=== PATIENT | male | born 2000 | race Asian ===

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

== ENCOUNTER 2018-08-03 13:32 | Inpatient (IN) | payer MEDICAID ==
[~2018-08-03] VITALS: Ht 165.1 cm; Wt 90.9 kg
[~2018-08-03 13:32] MED LIST: RISP1TAB89 PO; SERT50TA12 PO
[2018-08-03] MEDS ORDERED: LURA40 PO (16:41)
[2018-08-03] MEDS ORDERED: HALOPERIDOL 5 MG TABLET PO PRN (16:45)
[2018-08-03] MEDS ORDERED: LORazepam 2 MG TABLET PO PRN (16:45)
[2018-08-03 17:05] VITALS: BP 137/83
[2018-08-03] MEDS ORDERED: ONDANSETRON HCL 4 MG TABLET PO PRN (17:15)
[2018-08-03] MEDS ORDERED: GuaiFENesin/D-METHORPHAN [SUGAR-FREE] 200-20MG/10 ML SYRUP UDCUP PO PRN (17:15)
[2018-08-03] MEDS ORDERED: PETROLATUM,WHITE 71 GM JELLY TP PRN (17:15)
[2018-08-03] MEDS ORDERED: ACETAMINOPHEN 325 MG TABLET PO PRN (17:15)
[2018-08-03] MEDS ORDERED: IBUPROFEN 400 MG TABLET PO PRN (17:15)
[2018-08-03] MEDS ORDERED: DOCUSATE SODIUM 100 MG CAPSULE PO PRN (17:15)
[2018-08-03] MEDS ORDERED: MAG HYDROX/AL HYDROX/SIMETH ES 30 ML SUSPENSION UDCUP PO PRN (17:15)
[2018-08-03] MEDS ORDERED: ALBUTEROL SULFATE HFA 90 MCG/PUFF 8 GM INHALER IH PRN (17:15)
[2018-08-03] MEDS ORDERED: LOPERAMIDE HCL 2 MG CAPSULE PO PRN (17:15)
[2018-08-03] MEDS ORDERED: CloNIDine HCL 0.1 MG TABLET PO PRN (17:15)
[2018-08-03] MEDS ORDERED: MAGNESIUM HYDROXIDE SUSPENSION 30 ML UDCUP PO PRN (17:15)
[2018-08-04 00:35] VITALS: BP 135/75
[2018-08-04] MEDS: ZOLPIDEM TARTRATE 10 MG TABLET PO PRN ×2 (00:49→20:17)
[2018-08-04 08:00] VITALS: BP 138/81
[2018-08-04 08:33] LABS: HEMOGLOBIN A1C 4.9 % (4.5-6.2)
[2018-08-04 08:41] LABS: BASOPHILS % (AUTO) 0.7 % (0.0-2.0); EOSINOPHILS % (AUTO) 5.7 % (1.0-6.0); HEMATOCRIT 49.3 % (41-53); HEMOGLOBIN 16.7 g/dL (13.5-17.5); LYMPHOCYTES # (AUTO) 2.7 K/uL (1.0-4.8); LYMPHOCYTES % (AUTO) 30.6 % (22.0-44.0); MEAN CORPUSCULAR HEMOGLOBIN 27.9 pg (26.0-34.0); MEAN CORPUSCULAR HGB CONC 33.9 G/dL (31.0-37.0); MEAN CORPUSCULAR VOLUME 82 fL (80-100); MONOCYTES # (AUTO) 0.5 K/uL (0.1-1.0); MONOCYTES % (AUTO) 5.7 % (2.0-9.0); NEUTROPHILS % (AUTO) 57.3 % (40.0-70.0); RED CELL DISTRIBUTION WIDTH 13.5 % (11.5-14.5)
[2018-08-04 09:10] LABS: ALANINE AMINOTRANSFERASE 264 U/L (12-78); ALKALINE PHOSPHATASE 58 U/L (46-116); ANION GAP 10 mmol/L (8-16); ASPARTATE AMINOTRANSFERASE 91 U/L (15-37); BILIRUBIN,TOTAL 0.7 mg/dL (0.1-1.0); CALCIUM, TOTAL 9.3 mg/dL (8.8-10.5); CARBON DIOXIDE 25 mmol/L (22-29); CHLORIDE 102 mmol/L (98-107); CHOL/HDL RATIO 3.5 (4.2-7.3); CHOLESTEROL 157 mg/dL (131-200); FREE T4 (FREE THYROXINE) 0.88 ng/dL (0.76-1.46); GLOMERULAR FILTR. RATE CALC > 60 mL/min (>60); GLUCOSE,RANDOM 82 mg/dL (70-110); HDL CHOLESTEROL 45 mg/dL (40-60); LDL CHOL (CALC.) 87 mg/dL (0-130); POTASSIUM 4.3 mmol/L (3.5-5.1); SODIUM SERUM 137 mmol/L (136-145); THYROID STIMULATING HORMONE 1.23 uIU/mL (0.36-3.74); TOTAL PROTEIN, SERUM 7.7 g/dL (6.4-8.2); TRIGLYCERIDES 125 mg/dL (15-150); UREA NITROGEN, BLOOD 16 mg/dL (7-18)
[2018-08-04 09:27] LABS: PLATELET COUNT (AUTO) 266 K/uL (150-450)
[2018-08-04] MEDS: SERTRALINE HCL 50 MG TABLET PO SCH (11:39)
[2018-08-04 16:08] VITALS: BP 136/74
[2018-08-04] MEDS ORDERED: RisperiDONE 2 MG TABLET PO SCH (21:00)
[2018-08-05 06:21] VITALS: BP 128/72
[2018-08-05 08:53] VITALS: BP 132/74
[2018-08-05] MEDS: SERTRALINE HCL 50 MG TABLET PO SCH (09:36)
[2018-08-05] MEDS ORDERED: RISP2TAB76 PO (13:44)
== END 2018-08-05 15:20 | disposition home or self-care (01) | DRG 753 ==
LOC: B3A 16:41
PROVIDERS: ADMIT Psychiatry & Neurology Child & Adolescent Psychiatry; ATTEND Psychiatry & Neurology Child & Adolescent Psychiatry
DX: F31.9 Bipolar disorder, unspecified (principal); R00.0 Tachycardia, unspecified; F41.9 Anxiety disorder, unspecified; G47.00 Insomnia, unspecified; Z23 Encounter for immunization
CPT/HCPCS: 83036; 84439; 84443; 87081; 90686